=== PATIENT | female | born 1970 | race Caucasian/White ===

== ENCOUNTER 2023-10-15 05:33 | Day surgery (SDC) | payer OTHER ==
[2023-10-13 10:13] LABS: HEMATOCRIT 40.3 % (36.0-45.00); HEMOGLOBIN 13.7 g/dL (12.0-15.00); MEAN CELL VOLUME 88.8 fL (80.00-100.00); MEAN CORPUSCULAR HEMOGLOBIN 30.1 pg (27.00-32.0); MEAN CORPUSCULAR HGB CONC 33.9 g/dl (32.0-36.0); PH,URINE 7.5 (5.0-8.0); PLATELET COUNT 182 K/uL (150-450); RED BLOOD COUNT 4.54 M/uL (4.00-6.00); URINE APPEARANCE Clear; URINE BACTERIA 27.6 uL (0.0-1933); URINE BILIRRUBIN Negative (NEGATIVE); URINE BLOOD Negative; URINE COLOR Yellow; URINE EPITHELIAL CELLS 8.3 uL (0.0-38.8); URINE GLUCOSE Negative (NEGATIVE); URINE LEUKOCYTE Negative; URINE NITRATE Negative; URINE PROTEIN Negative (NEGATIVE)
[2023-10-13 10:17] LABS: URINE RBC 0.5 uL (0.0-20.8); URINE WBC 0.3 uL (0.0-23.2)
[2023-10-13 10:41] LABS: INR 1.06; PARTIAL THROMBOPLASTIN TIME 29.9 SECONDS (22.0-34.0)
[2023-10-13 10:46] LABS: PROTHROMBIN TIME 11.1 SECONDS (9.0-11.5)
[2023-10-13 10:51] LABS: ALBUMIN 3.5 gm/dL (3.4-5.0); BILIRUBIN TOTAL 0.43 mg/dL (0.3-1.2); CALCIUM 8.8 mg/dL (8.5-10.1); CREATININE SERUM 0.65 mg/dL (0.55-1.02); GFR 96.09; GLOBULINA 3.1 G/DL (2.4-3.5); POTASSIUM 4.43 mEq/L (3.5-5.1); TOTAL PROTEIN 6.6 gm/dL (6.4-8.2)
[~2023-10-15 05:33] MED LIST: CODE1TAB37 PO; DOCUSATE SODIU100 MG PO; LOSARTAN-HCTZ1 EACH PO; Mylicon 125MG PO
[2023-10-15] MEDS ORDERED: CLINDAMYCIN PHOSPHATE 150 MG/ML (900mg) ONE (07:20)
[2023-10-15] MEDS ORDERED: CEFAZOLIN SODIUM 1,000 MG VIAL ONE (07:52)
[2023-10-15] MEDS ORDERED: GENTAMICIN SULFATE 40 MG/ML VIAL ONE (08:06)
[2023-10-15] MEDS ORDERED: CHLORHEXIDINE GLUCONATE 120 ML BOTTLE TOP ONE (08:06)
[2023-10-15] MEDS ORDERED: EPINEPHRINE HCL/PF 1 MG/ML AMPUL ONE (09:19)
[2023-10-15] MEDS ORDERED: MORPHINE SULFATE 4 MG/ML VIAL IV PRN (09:30)
[2023-10-15] MEDS ORDERED: ONDANSETRON HCL 2 MG/ML VIAL IV PRN (09:30)
[2023-10-15] MEDS ORDERED: EPINEPHRINE HCL/PF 1 MG/ML AMPUL IR ONE (10:00)
[2023-10-15] MEDS ORDERED: GENTAMICIN SULFATE 40 MG/ML VIAL IR ONE (10:00)
[2023-10-15] MEDS ORDERED: CEFAZOLIN SODIUM 1,000 MG VIAL IJ ONE (10:00)
[2023-10-15] MEDS ORDERED: CLINDAMYCIN PHOSPHATE 150 MG/ML (900mg) IV ONE (10:00)
== END 2023-10-15 16:38 | disposition home or self-care (01) ==
LOC: CIR.AMB 05:33
PROVIDERS: ATTEND Plastic Surgery
DX: N64.81 Ptosis of breast (principal); R63.4 Abnormal weight loss; L90.5 Scar conditions and fibrosis of skin; L98.7 Excessive and redundant skin and subcutaneous tissue; E88.1 Lipodystrophy, not elsewhere classified